=== PATIENT | male | born 2005 | race Caucasian/White ===

== ENCOUNTER 2024-03-25 02:14 | Emergency (ER) | payer MEDICAID, OTHER ==
[~2024-03-25] VITALS: Ht 177.8 cm; Wt 72.6 kg
[2024-03-25] MEDS ORDERED: IBUP-1955 PO (02:56)
[2024-03-25] MEDS ORDERED: ONDA4TAB5 PO (02:56)
[2024-03-25] MEDS ORDERED: ACET-2812 PO (02:56)
[2024-03-25] MEDS ORDERED: ONDANSETRON ODT 4 MG TAB.RAPDIS ONE (03:06)
[2024-03-25] MEDS ORDERED: ACETAMINOPHEN 500 MG TABLET ONE (03:06)
[2024-03-25] MEDS: ACETAMINOPHEN 500 MG TABLET PO ONE (03:09)
[2024-03-25] MEDS: ONDANSETRON ODT 4 MG TAB.RAPDIS SL ONE (03:10)
[2024-03-25 04:34] VITALS: BP 122/74; TEMP 210.2; O2SAT 95
== END 2024-03-25 04:20 | disposition home or self-care (01) ==
LOC: ER 02:26
DX: B34.9 Viral infection, unspecified (principal); Z20.822 Contact with and (suspected) exposure to COVID-19; Z88.0 Allergy status to penicillin
CPT/HCPCS: 71045; A4606; A4663; A9150; Q0162